=== PATIENT | male | born 2000 | race African-American/Black ===

== ENCOUNTER 2025-05-30 19:54 | Emergency (ER) | payer SELFPAY ==
[2025-05-30] MEDS ORDERED: Dexamethasone 10 MG/ML VIAL ONE (20:22)
[2025-05-30] MEDS ORDERED: cefTRIAXone (ROCEPHIN) 1 GM VIAL ONE (20:23)
== END 2025-05-30 20:58 ==
LOC: CSHERS 19:54
DX: J02.0 Streptococcal pharyngitis (principal); R59.1 Generalized enlarged lymph nodes
CPT/HCPCS: 87430; 96372; 99283; J0696; J1100

== ENCOUNTER 2025-06-09 20:17 | Emergency (ER) | payer SELFPAY ==
[2025-06-09] MEDS ORDERED: Ketorolac Tromethamine 30 MG (1 mL) VIAL ONE (20:39)
[2025-06-09] MEDS ORDERED: Dexamethasone 10 MG/ML VIAL ONE (20:39)
[2025-06-09] MEDS ORDERED: cefTRIAXone (ROCEPHIN) 1 GM VIAL ONE (20:40)
[2025-06-09] MEDS ORDERED: Lidocaine 1% w/Epinephrine 1:200K 30 ML VIAL ONE (21:59)
== END 2025-06-09 22:23 | disposition home or self-care (01) ==
LOC: CSHERS 20:17
DX: J36 Peritonsillar abscess (principal)
CPT/HCPCS: 42700; 70490; 87081; 87430; 96372; J0696; J1100; J1885